=== PATIENT | male | born 1945 | race Caucasian/White ===

== ENCOUNTER 2019-04-11 14:23 | Inpatient (IN) | payer OTHER ==
[~2019-04-11] VITALS: Ht 162.6 cm; Wt 130.2 kg
[2019-04-11 14:28] VITALS: BP 158/85
[2019-04-11] MEDS ORDERED: NACL 0.9% 500 ML IV SCH (15:23)
[2019-04-11 16:29] LABS: HEMATOCRIT 41.6 % (36-52); HEMOGLOBIN 13.5 g/dL (12.0-18.0); MEAN CORPUSCULAR HEMOGLOBIN 29 pg (27-31); MEAN CORPUSCULAR HGB CONC 33 g/dL (33-37); MEAN CORPUSCULAR VOLUME 88.8 fL (80-94); PLATELET COUNT (AUTO) 178 K/uL (140-450); RED BLOOD CELL COUNT(AUTO) 4.68 MIL/uL (4.20-6.10); RED CELL DISTRIBUTION WIDTH 16.8 % (11.6-13.7); WHITE BLOOD COUNT (AUTO) 11.6 K/uL (4.8-10.8)
[2019-04-11 16:40] LABS: ANION GAP 13.7 (8-16); CARBON DIOXIDE 30.1 mmol/L (21-32); CHLORIDE 105 mmol/L (98-107); CREATININE 1.3 mg/dL (0.7-1.3); GLUCOSE 132 mg/dL (74-106); POTASSIUM 3.8 mmol/L (3.5-5.1); SODIUM SERUM 145 mmol/L (136-145); UREA NITROGEN, BLOOD 27 mg/dL (7-18)
[2019-04-11 16:43] LABS: LYMPHOCYTES % (MANUAL) 4 % (20-46); MONOCYTES % (MANUAL) 4 % (5-12)
[2019-04-11 16:44] LABS: PROTHROMBIN TIME 10.9 secs (10.8-13.4)
[2019-04-11 16:46] LABS: ALBUMIN 3.3 g/dL (3.4-5.0); ASPARTATE AMINOTRANSFERASE 35 U/L (15-37); TOTAL BILIRUBIN 0.9 mg/dL (0.0-1.0)
[2019-04-11] MEDS ORDERED: VANCOMYCIN 1,000 MG in DEXTROSE 5% 250 ML IV ONE (17:00)
[2019-04-11] MEDS ORDERED: NACL 0.9% 3,000 ML IV ONE (17:00)
[2019-04-11] MEDS ORDERED: VANCOMYCIN 1,000 MG VIAL ONE (17:21)
[2019-04-11] MEDS ORDERED: LISI-420 PO (17:59)
[2019-04-11] MEDS ORDERED: ATOR40TA PO (18:01)
[2019-04-11] MEDS ORDERED: METO50TA34 PO (18:02)
[2019-04-11] MEDS ORDERED: ASPIRIN 81 MG TAB.CHEW PO ONE (18:25)
[2019-04-11 19:30] VITALS: BP 138/76
[2019-04-11 19:43] LABS: APPEARANCE,URINE CLEAR (CLEAR); BILIRUBIN,URINE NEGATIVE (NEGATIVE); BLOOD, URINE 3+ (NEGATIVE); COLOR,URINE YELLOW (YELLOW); LEUKOCYTE ESTERASE ,URINE NEGATIVE (NEGATIVE); NITRITE, URINE NEGATIVE (NEGATIVE); PH,URINE 6.5 (5.0-9.0); UGLUCOSE NEGATIVE (NEGATIVE)
[2019-04-11 19:55] LABS: WBC,URINE 0-5 /HPF (0-5)
[2019-04-11] MEDS ORDERED: diphenhydrAMINE 50 MG/ML VIAL IVP PRN (20:35)
[2019-04-11] MEDS ORDERED: ZOLPIDEM 5 MG TAB PO PRN (20:35)
[2019-04-11] MEDS ORDERED: VANCOMYCIN PER PHARMACY MC PRN (20:35)
[2019-04-11] MEDS ORDERED: MAGNESIUM OXIDE 400 MG TAB PO PRN (20:35)
[2019-04-11] MEDS ORDERED: IPRATROPIUM 0.02% 0.5 MG/2.5 ML NEBU INH PRN (20:35)
[2019-04-11] MEDS ORDERED: POTASSIUM CHLORIDE 10 MEQ TABER PO PRN (20:35)
[2019-04-11] MEDS ORDERED: MORPHINE SULFATE 2 MG/ML SYR IVP PRN (20:35)
[2019-04-11] MEDS ORDERED: DOCUSATE SODIUM 250 MG GELCAP PO PRN (20:35)
[2019-04-11] MEDS ORDERED: MAG SULF 2000 MG/WATER PREMIX 50 ML IV PRN (20:35)
[2019-04-11] MEDS ORDERED: PIPERACILLIN/TAZOBACTAM 3.375 GM VIAL IV ONE (21:10)
[2019-04-11] MEDS: PIPERACILLIN/TAZOBACTAM 3.375 GM in DEXTROSE 5% 50 ML IV SCH (21:25)
[2019-04-11] MEDS: HYDROcodone/APAP 5/325 MG 1 TAB TAB PO PRN (21:30)
[2019-04-12] MEDS ORDERED: Z-GUARD PASTE TP PRN (01:20)
[2019-04-12] MEDS ORDERED: VANCOMYCIN 1GM/DEXT 5% PREMIX 200 ML IV SCH (02:00)
[2019-04-12] MEDS ORDERED: VANCOMYCIN 1,000 MG VIAL ONE (02:52)
[2019-04-12 04:00] VITALS: BP 183/92
[2019-04-12] MEDS: HYDROcodone/APAP 5/325 MG 1 TAB TAB PO PRN ×2 (05:10→18:27)
[2019-04-12] MEDS ORDERED: PIPERACILLIN/TAZOBACTAM 3.375 GM VIAL IV ONE (05:58)
[2019-04-12] MEDS: cloNIDine 0.1 MG TAB PO PRN ×3 (06:03→14:01)
[2019-04-12] MEDS: PIPERACILLIN/TAZOBACTAM 3.375 GM in DEXTROSE 5% 50 ML IV SCH ×3 (06:04→21:22)
[2019-04-12 06:47] LABS: BASOPHILS % (AUTO) 0.3 % (0.0-2.0); HEMATOCRIT 29.4 % (36-52); HEMOGLOBIN 9.7 g/dL (12.0-18.0); LYMPHOCYTES # (AUTO) 0.6 K/uL (2.0-11.5); MEAN CORPUSCULAR HEMOGLOBIN 29 pg (27-31); MEAN CORPUSCULAR HGB CONC 33 g/dL (33-37); MEAN CORPUSCULAR VOLUME 88.8 fL (80-94); MONOCYTES # (AUTO) 0.5 K/uL (0.8-1.0); MONOCYTES % (AUTO) 7.7 % (1.7-9.3); NEUTROPHILS # (AUTO) 4.9 K/uL (1.8-7.7); PLATELET COUNT (AUTO) 111 K/uL (140-450); RED BLOOD CELL COUNT(AUTO) 3.31 MIL/uL (4.20-6.10); RED CELL DISTRIBUTION WIDTH 16.8 % (11.6-13.7)
[2019-04-12 07:16] LABS: ALBUMIN 1.6 g/dL (3.4-5.0); ANION GAP 9.8 (8-16); ASPARTATE AMINOTRANSFERASE 18 U/L (15-37); CARBON DIOXIDE 24.7 mmol/L (21-32); CHLORIDE 118 mmol/L (98-107); CREATININE 1.1 mg/dL (0.7-1.3); GLUCOSE 87 mg/dL (74-106); SODIUM SERUM 150 mmol/L (136-145); TOTAL BILIRUBIN 1.3 mg/dL (0.0-1.0); UREA NITROGEN, BLOOD 17 mg/dL (7-18)
[2019-04-12 07:33] LABS: POTASSIUM 2.5 mmol/L (3.5-5.1)
[2019-04-12] MEDS ORDERED: MAG SULF 2000 MG/WATER PREMIX 100 ML IV ONE (07:40)
[2019-04-12] MEDS ORDERED: POTASSIUM CHLORIDE 10 MEQ TABER PO SCH ×2 (07:40→11:05)
[2019-04-12 08:00] VITALS: BP 153/70
[2019-04-12 08:20] LABS: LYMPHOCYTES % (AUTO) 9.5 % (20.5-51.1); NEUTROPHILS % (AUTO) 82.5 % (42.2-75.2)
[2019-04-12] MEDS: ATORVASTATIN 20 MG TAB PO SCH (08:55)
[2019-04-12] MEDS: LISINOPRIL 20 MG TAB PO SCH (08:55)
[2019-04-12] MEDS: Z-GUARD PASTE TP SCH (08:56)
[2019-04-12 12:00] VITALS: BP 192/109
[2019-04-12] MEDS: NACL 0.45% 1,000 ML IV SCH (12:15)
[2019-04-12] MEDS ORDERED: ISOSORBIDE MONONITRATE 30 MG TABER PO SCH (12:25)
[2019-04-12] MEDS: VANCOMYCIN HCL 750 MG in DEXTROSE 5% 250 ML IV SCH (14:56)
[2019-04-12 16:00] VITALS: BP 155/72
[2019-04-12 20:00] VITALS: BP 142/84
[2019-04-13] VITALS: BP 143/72
[2019-04-13] MEDS: Z-GUARD PASTE TP SCH ×2 (01:32→14:00)
[2019-04-13 04:00] VITALS: BP 139/80
[2019-04-13] MEDS: VANCOMYCIN HCL 750 MG in DEXTROSE 5% 250 ML IV SCH ×2 (04:33→16:00)
[2019-04-13] MEDS: PIPERACILLIN/TAZOBACTAM 3.375 GM in DEXTROSE 5% 50 ML IV SCH ×3 (05:50→21:10)
[2019-04-13] MEDS: NACL 0.45% 1,000 ML IV SCH ×3 (07:00→22:39)
[2019-04-13] MEDS: HYDROcodone/APAP 5/325 MG 1 TAB TAB PO PRN (07:12)
[2019-04-13 08:00] VITALS: BP 178/92
[2019-04-13] MEDS ORDERED: MAG SULF 2000 MG/WATER PREMIX 50 ML IV ONE (08:00)
[2019-04-13] MEDS: LISINOPRIL 20 MG TAB PO SCH (08:39)
[2019-04-13] MEDS: METOPROLOL 50 MG TAB PO SCH (08:39)
[2019-04-13] MEDS: ATORVASTATIN 20 MG TAB PO SCH (08:39)
[2019-04-13] MEDS: ISOSORBIDE MONONITRATE 30 MG TABER PO SCH (08:39)
[2019-04-13 09:00] LABS: BASOPHILS % (AUTO) 0.3 % (0.0-2.0); EOSINOPHILS % (AUTO) 0.8 % (0.0-4.0); HEMATOCRIT 32.1 % (36-52); HEMOGLOBIN 10.7 g/dL (12.0-18.0); LYMPHOCYTES # (AUTO) 0.6 K/uL (2.0-11.5); MEAN CORPUSCULAR HEMOGLOBIN 29 pg (27-31); MEAN CORPUSCULAR HGB CONC 33 g/dL (33-37); MONOCYTES # (AUTO) 0.5 K/uL (0.8-1.0); MONOCYTES % (AUTO) 8.9 % (1.7-9.3); NEUTROPHILS # (AUTO) 4.9 K/uL (1.8-7.7); PLATELET COUNT (AUTO) 130 K/uL (140-450); RED BLOOD CELL COUNT(AUTO) 3.64 MIL/uL (4.20-6.10); RED CELL DISTRIBUTION WIDTH 17.1 % (11.6-13.7); WHITE BLOOD COUNT (AUTO) 6.2 K/uL (4.8-10.8)
[2019-04-13 09:47] LABS: ALBUMIN 2.3 g/dL (3.4-5.0); ANION GAP 12.1 (8-16); ASPARTATE AMINOTRANSFERASE 26 U/L (15-37); CARBON DIOXIDE 29.7 mmol/L (21-32); CHLORIDE 105 mmol/L (98-107); CREATININE 1.3 mg/dL (0.7-1.3); GLUCOSE 190 mg/dL (74-106); POTASSIUM 3.8 mmol/L (3.5-5.1); SODIUM SERUM 143 mmol/L (136-145); TOTAL BILIRUBIN 0.7 mg/dL (0.0-1.0); UREA NITROGEN, BLOOD 19 mg/dL (7-18)
[2019-04-13] MEDS: ACETAMINOPHEN 325 MG TAB PO PRN ×2 (10:34→17:20)
[2019-04-13] MEDS: cloNIDine 0.1 MG TAB PO PRN (10:35)
[2019-04-13 12:00] VITALS: BP 161/85
[2019-04-13 16:00] VITALS: BP 147/81
[2019-04-13 19:42] VITALS: BP 154/80
[2019-04-14 01:07] VITALS: BP 166/107
[2019-04-14] MEDS: Z-GUARD PASTE TP SCH ×2 (01:12→13:01)
[2019-04-14] MEDS: HYDROcodone/APAP 5/325 MG 1 TAB TAB PO PRN ×2 (01:12→12:41)
[2019-04-14] MEDS: VANCOMYCIN HCL 750 MG in DEXTROSE 5% 250 ML IV SCH ×2 (03:28→15:17)
[2019-04-14 03:41] VITALS: BP 165/100
[2019-04-14] MEDS: PIPERACILLIN/TAZOBACTAM 3.375 GM in DEXTROSE 5% 50 ML IV SCH ×3 (05:03→20:48)
[2019-04-14 07:32] LABS: BASOPHILS % (AUTO) 0.3 % (0.0-2.0); EOSINOPHILS # (AUTO) 0.1 K/uL (0-0.4); EOSINOPHILS % (AUTO) 1.6 % (0.0-4.0); HEMATOCRIT 34.5 % (36-52); HEMOGLOBIN 11.4 g/dL (12.0-18.0); LYMPHOCYTES # (AUTO) 0.6 K/uL (2.0-11.5); MEAN CORPUSCULAR HEMOGLOBIN 29 pg (27-31); MEAN CORPUSCULAR HGB CONC 33 g/dL (33-37); MEAN CORPUSCULAR VOLUME 87.8 fL (80-94); MONOCYTES # (AUTO) 0.5 K/uL (0.8-1.0); MONOCYTES % (AUTO) 9.1 % (1.7-9.3); NEUTROPHILS # (AUTO) 3.9 K/uL (1.8-7.7); PLATELET COUNT (AUTO) 146 K/uL (140-450); RED BLOOD CELL COUNT(AUTO) 3.93 MIL/uL (4.20-6.10); RED CELL DISTRIBUTION WIDTH 16.6 % (11.6-13.7)
[2019-04-14 07:37] LABS: ALBUMIN 2.3 g/dL (3.4-5.0); ANION GAP 9.9 (8-16); ASPARTATE AMINOTRANSFERASE 26 U/L (15-37); CHLORIDE 106 mmol/L (98-107); CREATININE 1.4 mg/dL (0.7-1.3); GLUCOSE 119 mg/dL (74-106); POTASSIUM 3.9 mmol/L (3.5-5.1); SODIUM SERUM 143 mmol/L (136-145); TOTAL BILIRUBIN 0.8 mg/dL (0.0-1.0); UREA NITROGEN, BLOOD 17 mg/dL (7-18)
[2019-04-14 07:44] LABS: MAGNESIUM 2.3 mg/dL (1.8-2.4); PHOSPHORUS 3.5 mg/dL (2.5-4.9)
[2019-04-14 08:00] VITALS: BP 194/99
[2019-04-14] MEDS: ATORVASTATIN 20 MG TAB PO SCH (08:30)
[2019-04-14] MEDS: LISINOPRIL 20 MG TAB PO SCH (08:30)
[2019-04-14] MEDS: METOPROLOL 50 MG TAB PO SCH (08:30)
[2019-04-14] MEDS: ISOSORBIDE MONONITRATE 30 MG TABER PO SCH (08:31)
[2019-04-14] MEDS: cloNIDine 0.1 MG TAB PO PRN ×4 (08:32→20:53)
[2019-04-14] MEDS: ACETAMINOPHEN 325 MG TAB PO PRN ×2 (08:35→21:17)
[2019-04-14 12:00] VITALS: BP 148/76
[2019-04-14] MEDS ORDERED: VANC750F IV (12:10)
[2019-04-14] MEDS: NACL 0.45% 1,000 ML IV SCH (13:05)
[2019-04-14 16:00] VITALS: BP 183/101
[2019-04-14 20:00] VITALS: BP 187/96
[2019-04-15] VITALS: BP 155/80
[2019-04-15] MEDS: Z-GUARD PASTE TP SCH ×2 (00:59→12:58)
[2019-04-15] MEDS: NACL 0.45% 1,000 ML IV SCH (01:35)
[2019-04-15] MEDS: HYDROcodone/APAP 5/325 MG 1 TAB TAB PO PRN (02:48)
[2019-04-15] MEDS: VANCOMYCIN HCL 750 MG in DEXTROSE 5% 250 ML IV SCH (02:50)
[2019-04-15 04:00] VITALS: BP 190/104
[2019-04-15] MEDS: PIPERACILLIN/TAZOBACTAM 3.375 GM in DEXTROSE 5% 50 ML IV SCH ×3 (04:53→20:38)
[2019-04-15] MEDS: cloNIDine 0.1 MG TAB PO PRN (05:10)
[2019-04-15 08:00] VITALS: BP 169/93
[2019-04-15] MEDS: METOPROLOL 50 MG TAB PO SCH (08:42)
[2019-04-15] MEDS: ISOSORBIDE MONONITRATE 30 MG TABER PO SCH (08:42)
[2019-04-15] MEDS: LISINOPRIL 20 MG TAB PO SCH (08:42)
[2019-04-15] MEDS: ATORVASTATIN 20 MG TAB PO SCH (08:43)
[2019-04-15] MEDS ORDERED: hydrALAZINE 25 MG TAB PO SCH (09:15)
[2019-04-15 09:30] LABS: BASOPHILS % (AUTO) 0.4 % (0.0-2.0); EOSINOPHILS # (AUTO) 0.2 K/uL (0-0.4); EOSINOPHILS % (AUTO) 3.6 % (0.0-4.0); HEMATOCRIT 34.3 % (36-52); HEMOGLOBIN 11.2 g/dL (12.0-18.0); LYMPHOCYTES # (AUTO) 0.7 K/uL (2.0-11.5); LYMPHOCYTES % (AUTO) 14.1 % (20.5-51.1); MEAN CORPUSCULAR HEMOGLOBIN 29 pg (27-31); MEAN CORPUSCULAR HGB CONC 33 g/dL (33-37); MONOCYTES # (AUTO) 0.6 K/uL (0.8-1.0); MONOCYTES % (AUTO) 11.2 % (1.7-9.3); NEUTROPHILS # (AUTO) 3.7 K/uL (1.8-7.7); NEUTROPHILS % (AUTO) 70.7 % (42.2-75.2); PLATELET COUNT (AUTO) 164 K/uL (140-450); RED BLOOD CELL COUNT(AUTO) 3.94 MIL/uL (4.20-6.10); RED CELL DISTRIBUTION WIDTH 16.7 % (11.6-13.7); WHITE BLOOD COUNT (AUTO) 5.3 K/uL (4.8-10.8)
[2019-04-15 10:15] LABS: ALBUMIN 2.4 g/dL (3.4-5.0); ANION GAP 10.1 (8-16); ASPARTATE AMINOTRANSFERASE 25 U/L (15-37); CARBON DIOXIDE 31.7 mmol/L (21-32); CHLORIDE 105 mmol/L (98-107); CREATININE 1.9 mg/dL (0.7-1.3); GLUCOSE 110 mg/dL (74-106); POTASSIUM 3.8 mmol/L (3.5-5.1); SODIUM SERUM 143 mmol/L (136-145); TOTAL BILIRUBIN 0.6 mg/dL (0.0-1.0); UREA NITROGEN, BLOOD 19 mg/dL (7-18)
[2019-04-15 12:00] VITALS: BP 157/89
[2019-04-15] MEDS: hydrALAZINE 25 MG TAB PO SCH ×2 (12:49→20:38)
[2019-04-15] MEDS: ACETAMINOPHEN 325 MG TAB PO PRN ×2 (14:37→21:22)
[2019-04-15 16:00] VITALS: BP 154/79
[2019-04-15 20:00] VITALS: BP 186/96
[2019-04-15] MEDS ORDERED: TAMSULOSIN 0.4 MG CAP PO SCH (21:00)
[2019-04-16] VITALS: BP 151/80
[2019-04-16] MEDS: Z-GUARD PASTE TP SCH ×2 (00:58→12:23)
[2019-04-16 04:00] VITALS: BP 197/100
[2019-04-16] MEDS: hydrALAZINE 25 MG TAB PO SCH ×2 (05:00→12:20)
[2019-04-16] MEDS: PIPERACILLIN/TAZOBACTAM 3.375 GM in DEXTROSE 5% 50 ML IV SCH (05:00)
[2019-04-16 08:00] VITALS: BP 175/96
[2019-04-16] MEDS: ISOSORBIDE MONONITRATE 30 MG TABER PO SCH (08:45)
[2019-04-16] MEDS: METOPROLOL 50 MG TAB PO SCH (08:46)
[2019-04-16] MEDS: ATORVASTATIN 20 MG TAB PO SCH (08:46)
[2019-04-16 09:41] LABS: BASOPHILS % (AUTO) 0.5 % (0.0-2.0); EOSINOPHILS # (AUTO) 0.2 K/uL (0-0.4); EOSINOPHILS % (AUTO) 4.2 % (0.0-4.0); HEMATOCRIT 36.5 % (36-52); HEMOGLOBIN 11.9 g/dL (12.0-18.0); LYMPHOCYTES # (AUTO) 0.7 K/uL (2.0-11.5); LYMPHOCYTES % (AUTO) 14.8 % (20.5-51.1); MEAN CORPUSCULAR HEMOGLOBIN 29 pg (27-31); MEAN CORPUSCULAR HGB CONC 33 g/dL (33-37); MEAN CORPUSCULAR VOLUME 87.3 fL (80-94); MONOCYTES # (AUTO) 0.4 K/uL (0.8-1.0); MONOCYTES % (AUTO) 8.4 % (1.7-9.3); NEUTROPHILS # (AUTO) 3.4 K/uL (1.8-7.7); NEUTROPHILS % (AUTO) 72.1 % (42.2-75.2); PLATELET COUNT (AUTO) 173 K/uL (140-450); RED BLOOD CELL COUNT(AUTO) 4.18 MIL/uL (4.20-6.10); WHITE BLOOD COUNT (AUTO) 4.7 K/uL (4.8-10.8)
[2019-04-16 09:50] VITALS: BP 166/72
[2019-04-16 10:12] LABS: POTASSIUM 3.2 mmol/L (3.5-5.1); SODIUM SERUM 146 mmol/L (136-145)
[2019-04-16 10:13] LABS: ANION GAP 10.9 (8-16); CARBON DIOXIDE 32.3 mmol/L (21-32); CHLORIDE 106 mmol/L (98-107); CREATININE 1.2 mg/dL (0.7-1.3); GLUCOSE 151 mg/dL (74-106); UREA NITROGEN, BLOOD 15 mg/dL (7-18)
[2019-04-16] MEDS ORDERED: VANCOMYCIN PER PHARMACY MC PRN (10:35)
[2019-04-16 10:43] LABS: ALBUMIN 2.5 g/dL (3.4-5.0)
[2019-04-16 10:45] LABS: ASPARTATE AMINOTRANSFERASE 29 U/L (15-37); TOTAL BILIRUBIN 0.7 mg/dL (0.0-1.0)
[2019-04-16] MEDS ORDERED: VANCOMYCIN 1,000 MG in DEXTROSE 5% 250 ML IV SCH (11:30)
[2019-04-16 12:00] VITALS: BP 158/89
[2019-04-16] MEDS ORDERED: TAMS0.4C96 PO (12:03)
[2019-04-16] MEDS ORDERED: POTASSIUM CHLORIDE 10 MEQ TABER PO PRN (12:10)
[2019-04-16] MEDS: ACETAMINOPHEN 325 MG TAB PO PRN (12:20)
[2019-04-16] MEDS ORDERED: INFLUENZA VACCINE QUAD 0.5 ML SYR IMVAC PRN (14:20)
== END 2019-04-16 16:20 | DRG 872 ==
LOC: MED 14:23 → MTU 18:31
PROVIDERS: ADMIT Internal Medicine Pulmonary Disease; ATTEND Internal Medicine Pulmonary Disease
DX: A41.9 Sepsis, unspecified organism (principal); L03.116 Cellulitis of left lower limb; L03.115 Cellulitis of right lower limb; Z68.42 Body mass index [BMI] 45.0-49.9, adult; E87.0 Hyperosmolality and hypernatremia; E83.42 Hypomagnesemia; E87.6 Hypokalemia; E78.5 Hyperlipidemia, unspecified; I10 Essential (primary) hypertension; L98.9 Disorder of the skin and subcutaneous tissue, unspecified; N28.1 Cyst of kidney, acquired; N40.1 Benign prostatic hyperplasia with lower urinary tract symptoms; R33.8 Other retention of urine; I87.2 Venous insufficiency (chronic) (peripheral); E66.01 Morbid (severe) obesity due to excess calories; E78.00 Pure hypercholesterolemia, unspecified; Z79.899 Other long term (current) drug therapy
CPT/HCPCS: 36415; 71045; 76770; 80053; 80202; 81001; 82948; 83605; 83735; 83880; 84100; 84484; 85025; 85610; 85730; 87040; 87081; 87086; 96361; 96365; 97110; 97116; 97530; 99285; C1758; J2270; J2543; J3370; J3475; J7030; J7060; J7120; J7644; Q0092